=== PATIENT | female | born 1970 | race Caucasian/White ===

== ENCOUNTER 2017-05-01 09:17 | Inpatient (IN) ==
--- NOTE | 2017-05-01 09:20 | Emergency Department Note ---
Disposition Clinical Impression: Malignant hypertension Headache Qualifiers: Headache type: other headache syndrome Qualified Code(s): G44.89 - Other headache syndrome Disposition: Admitted As Inpatient Condition: Fair Referrals: Alexa Silverio MD [Primary Care Provider] - Forms: ED Satisfaction Letter Headache HPI - General Chief Complaint: ED Headache Stated Complaint: headache Time Seen by Provider: 05/01/17 09:24 Source: patient Mode of arrival: private vehicle Limitations: no limitations Nursing Notes Reviewed: Yes Vital Signs Reviewed: Yes - History of Present Illness HPI Narrative: Patient relates she is hence admitted headache intermittent since Friday. She states initially went away with Tylenol. On Friday she is to have an infusion for her rheumatoid arthritis and was noted to have some elevated blood pressure. She states there is difficulty with the IV and the infusion and had to be discontinued that day due to pain in her right arm. She did have return headache she states late yesterday morning and has gradually gotten worse until the present time. She called to her primary care physician' s office and was advised to come here for evaluation. She states the pain is occipital to frontal and she cannot describe the quality of the pain other than it "hurts so bad". She denies anything else that makes this pain better or worse. She has had some light sensitivity without other visual changes. She denies now and sensitivity. She has had some nausea without vomiting. She denies any extremity numbness, tingling or weakness other than a little bit of tingling in her feet yesterday. She denies chest pain, palpitations or abnormal cough. She states she has a smoker's cough. She does report that she is having some mild shortness of breath. She denies fevers, chills, diaphoresis or any lower extremity edema. She denies any alteration in mental status, speech or gait. She states she occasionally feels a little lightheaded when headache pain is bad. She states she does drink a good bit of caffeinated beverages but denies any other recent cold preparations, energy drinks or diet pills. She laid she has had a history of headaches but this one has been more persistent and is gradually getting worse. Pt Subjective Complaint: headache Onset (ago): day(s) Onset description: gradual Location: frontal, occipital Pain Severity: moderate, severe Quality: aching, constant Improves with: nothing Worsens with: light Context: occurred at rest Associated symptoms: Reports: cough ("Smoker's cough"), nausea, malaise, photophobia, SOB. Denies: chest pain, diaphoresis, fever, vomiting, neck stiffness, phonophobia, rash, seizure, eye pain/redness, syncope, vision changes , tingling, numbness, confusion, weakness Treatments prior to arrival: acetaminophen - Related Data Home Medications Medication Instructions Recorded Confirmed Adalimumab [Humira Crohn's] 40 mg SQ 05/01/17 Cetirizine HCl [Zyrtec] 10 mg PO DAILY 05/01/17 05/01/17 Leflunomide 20 mg PO DAILY 05/01/17 05/01/17 Allergies Allergy/AdvReac Type Severity Reaction Status Date / Time golimumab [From Simponi ARIA] Allergy Hives Verified 02/26/17 14:23 acetaminophen [From Percocet] AdvReac Itching Verified 12/17/15 10:54 Oxycodone [From Percocet] AdvReac Itching Verified 12/17/15 10:54 tramadol AdvReac Hallucinati Verified 05/01/17 09:26 ng All systems ED: reviewed and negative except as stated. Headache PMH - Past Medical History Medical history: Reports: hyperlipidemia, hypertension, RA, thyroid disease, other (Headaches) Female Surgical History: Reports: cholecystectomy, hysterectomy Psychiatric history: Reports: no psych history PROJECT ADMIN history: Reports: bilateral tubal ligation - Social History Smoking Status: Current every day smoker Alcohol use: Reports: none Drug use: Reports: none Physical Exam - General Limitations: no limitations General appearance: alert, in distress - Head Head exam: atraumatic, normocephalic, normal inspection - Eye Eye exam: Present: normal appearance, PERRL, EOMI. Absent: scleral icterus, conjunctival injection, nystagmus - ENT ENT exam: normal exam, normal oropharynx, mucous membranes moist - Neck Neck exam: Present: normal inspection, full ROM, trachea midline. Absent: tenderness, meningismus, lymphadenopathy - Chest Chest inspection: Present: normal inspection, symmetric chest wall rise - Respiratory Respiratory exam: Present: normal lung sounds bilaterally. Absent: respiratory distress, wheezes, prolonged expiratory phase - Cardiovascular Cardiovascular exam: Present: regular rate, normal rhythm, normal heart sounds - Extremities Exam Extremities exam: Present: normal inspection, full ROM, normal capillary refill. Absent: tenderness, pedal edema, calf tenderness - Expanded Lower Extremity Exam Neurovascular/Tendon exam: Present: normal capillary refill. Absent: motor deficit, sensory deficit, tendon deficit Gait: observed and normal - Back Exam Back exam: Present: normal inspection, full ROM. Absent: tenderness - Neurological Exam Neurological exam: Present: alert, oriented X3, CN II-XII intact, normal gait, reflexes normal. Absent: motor sensory deficit - Psychiatric Psychiatric exam: Present: normal mood, flat affect - Skin Skin exam: Present: warm, dry, intact, normal color. Absent: rash, diaphoresis , pallor Course Course Narrative: 1035: All labs and imaging results have been discussed with the patient and family. I recommended her observation for careful blood pressure monitoring and being started on oral antihypertensives. She states that she would refuse to be admitted at this facility but she is willing to go to [facility]. I contacted to the transfer line and they advised her parents are taped but they do have to telemetry beds. They recommended we contact the hospitalist to see if they would accept the patient. 1053: The patient has been declined in transfer to [facility] by Dr. Reid due to lack of beds. 1059: [facility] advises they do not have any telemetry beds available at this time. Given this information the patient states that they are agreeable to staying at this facility. 1105: Dr. Back is agreeable with this patient be admitted at this facility. He would like to review the patient's history and evaluated the patient prior to writing for antihypertensives. He relates he will place in the orders for antihypertensive medication treatment when she arrives to the floor. Vital Signs Temperature 97.8 F 05/01/17 09:19 Pulse Rate 109 05/01/17 09:19 Respiratory Rate 18 05/01/17 09:19 Blood Pressure 228/138 05/01/17 09:19 O2 Sat by Pulse Oximetry 99 05/01/17 09:19 Temperature 97.8 F 05/01/17 09:19 Pulse Rate 78 05/01/17 10:33 Respiratory Rate 18 05/01/17 10:33 Blood Pressure 154/86 05/01/17 10:33 O2 Sat by Pulse Oximetry 98 05/01/17 10:33 Oxygen Delivery Oxygen Delivery Room Air Headache - Differential Diagnosis Differential Diagnosis: Likely: migraine, tension headache, headache - Medical Records Medical records reviewed: Yes I reviewed the patient's medical records. - Lab Data Lab results reviewed: Yes I reviewed the patient's lab results. Result diagrams: 05/01/17 09:39 Lab Results 05/01/17 05/01/17 Range/Units 09:39 09:40 Sodium 138 (136-145) mEq/L Potassium 3.4 L (3.5-4.5) mEq/L Chloride 100 (98-109) mEq/L Carbon Dioxide 26 (19-29) mEq/L BUN 6 L (7-20) mg/dL Creatinine 0.73 (0.57-1.11) mg/dL Est GFR ( Amer) > 60 (> 60) Est GFR (Non-Af Amer) > 60 (> 60) BUN/Creatinine Ratio 8 (6-26) Glucose 159 H (70-99) mg/dL Calculated Osmolality 287 (280-300) Calcium 9.2 (8.6-10.8) mg/dL Troponin I 0.01 (0-0.03) ng/mL - Radiology Data Radiology results reviewed: Yes I reviewed the patient's radiology results. CT head is performed. This is reviewed on bone and soft tissue windows. There is no evidence for acute intracranial bleed, shift, mass or edema. Mastoids and sinuses appear normal. There is no fracture evident. This is on my interpretation. Impressions Head CT 05/01/17 09:25 IMPRESSION: No acute intracranial abnormality. D/ / Fercho Rodriguez MD / Fercho Rodriguez MD Interpreting Provider: Fercho Rodriguez MD - EKG Data EKG attestation: Yes I reviewed and interpreted this EKG. EKG shows normal: sinus rhythm, axis, intervals, QRS complexes, ST-T waves Rate: normal (84) Voltage: c/w LVH Interpretation: no acute changes, nonspecific ST-T wave changes Critical Care Time Critical Care Time: Yes Total Critical Care Time: 45 Attestation: As this patient did present with signs and symptoms of potential life- threatening illness requiring my urgent intervention, total critical care time in this patient's care has been 45 minutes, not withstanding separately reportable procedures.
[2017-05-01] MEDS ORDERED: cloNIDine HCl 0.1 MG TABLET PO ONE (09:25)
[2017-05-01] MEDS ORDERED: *HR* Labetalol 20 MG/4 ML SYRINGE IVP ONE ×2 (09:25→10:12)
[2017-05-01 10:02] LABS: BUN/Creatinine Ratio 8 (6-26); Blood Urea Nitrogen 6 mg/dL (7-20); Calcium 9.2 mg/dL (8.6-10.8); Carbon Dioxide 26 mEq/L (19-29); Chloride 100 mEq/L (98-109); Glucose 159 mg/dL (70-99); Osmolality,Calculated 287 (280-300); Potassium 3.4 mEq/L (3.5-4.5); Sodium 138 mEq/L (136-145); eGFR For African Americans > 60 (> 60); eGFR For Non-African Americans > 60 (> 60)
[2017-05-01] MEDS ORDERED: *HR* HYDROmorphone (PF) 1 MG/ML SYRINGE IVP ONE ×2 (10:36→12:35)
[2017-05-01] MEDS ORDERED: Ondansetron 4 MG/2 ML VIAL IVP ONE (11:11)
[2017-05-01] MEDS ORDERED: MOM Conc 10 ML UD.LIQ PO PRN (11:55)
[2017-05-01] MEDS ORDERED: 0.9 % Sodium Chloride 1,000 ML IVC SCH (11:55)
[2017-05-01] MEDS ORDERED: Ondansetron 4 MG/2 ML VIAL IVP PRN (11:55)
[2017-05-01] MEDS ORDERED: *HR* HYDROmorphone (PF) 1 MG/ML SYRINGE IVP PRN (11:55)
[2017-05-01] MEDS ORDERED: Naloxone 0.4 MG/ML INJ IVP PRN (11:55)
[2017-05-01] MEDS ORDERED: amLODIPine 5 MG TABLET PO SCH (12:30)
[2017-05-01] MEDS: *HR* HYDROmorphone (PF) 1 MG/ML SYRINGE IVP PRN ×2 (14:12→20:09)
--- NOTE | 2017-05-01 15:46 | Internal Med History&Physical ---
Date of Encounter: 05/01/17 Time of Encounter: 15:15 Assessment and Plan (1) Malignant hypertension Current visit: Yes Status: Acute She was treated in emergency room and blood pressure has improved. She will continue to receive oral antihypertensives with additional IV medication given as needed. (2) Headache Current visit: Yes Status: Acute She has been given analgesics to lessen the headache and improved blood pressure. Qualifiers: Headache type: other headache syndrome Qualified Code(s): G44.89 - Other headache syndrome (3) Hypokalemia Current visit: Yes Status: Acute She will be given supplemental potassium. Labs will be rechecked in a.m. Internal Medicine - H&P: HPI Chief complaint: Headache and vomiting Admitted From: Home Plans for Post Hospital Care: Home History of present illness: Ms. Servin is a 47 year old female who came to emergency room stating she had onset of severe headache 3 days earlier. She checked her blood pressure last evening and found it elevated at 208/133. 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 She was evaluated emergency room and pressure was still elevated at 228/138. She was admitted to [facility] floor for ongoing care needs. She denies past history of hypertension or treatment. She states she last checked her blood pressure approximately one month ago and systolic blood pressure was 170. She has not been prescribed antihypertensive medication. She has not seen her PCP in approximately one year. She denies NH heart failure angina DVT or pulmonary embolus. She has not had a stress test or heart catheter that she can recall. She had 4 episodes of vomiting in the last 24 hours. Past Med Surg Social Fam HX - Past Medical History Medical history: hyperlipidemia, hypertension, RA, thyroid disease, other Psychiatric history: no psych history - Past Surgical History Surgical History: cholecystectomy - Social History Smoking Status: Current every day smoker Smokeless Tobacco Status: No Alcohol use: none Drug use: none Internal Medicine - H&P: Meds Adalimumab [Humira Crohn's] 40 mg SQ 05/01/17 [History] Leflunomide 20 mg PO DAILY 05/01/17 [History] Allergies golimumab [From Simponi ARIA] Allergy (Verified 02/26/17 14:23) Hives acetaminophen [From Percocet] Adverse Reaction (Verified 12/17/15 10:54) Itching Oxycodone [From Percocet] Adverse Reaction (Verified 12/17/15 10:54) Itching tramadol Adverse Reaction (Verified 05/01/17 09:26) Hallucinating All Systems PM: A 10-system review of systems was performed and is negative for pertinent findings except as documented above in the HPI. Review of systems: Gen.: She states her weight is been stable the past few months Cardiovascular: As per history of present illness Respiratory: She has smoked since age 9 up to 1.5 packs per day. She had PFTs 10/24/2015 which showed FEV1/FVC of 0.56. There was slight improvement postbronchodilator. She does not wear home oxygen. GI: She has had cholecystectomy. She has history of Crohn's disease and has had intermittent diarrhea. She denies disorders of her liver or exocrine pancreas : She had hematuria documented on UA 12/22/2015. She denies other disorders of her kidneys or bladder Neurologic: She denies large distribution strokes or seizures Endocrine: She was diagnosed with DM 2 approximately 1 year ago. She has hypothyroidism and hyperlipidemia Hematology/oncology: She has history of anemia. She denies internal malignancies Psychiatric: She denies anxiety depression or other mental health issues Musk skeletal: She has rheumatoid arthritis. She denies other bone joint or muscle disorders. - Constitutional Vitals: Temp Pulse Resp BP Pulse Ox 97.6 F 74 20 155/96 94 05/01/17 15:13 05/01/17 15:13 05/01/17 15:13 05/01/17 15:13 05/01/17 15:13 Exam: Gen.: She is a well-developed well-nourished female who appears weak and vomited during the time of examination HEENT: Head is atraumatic and normocephalic. Eyes: EOMI. There is no scleral icterus. Mouth: Mucosa is moist. Neck: Supple and nontender. There is no thyromegaly or adenopathy noted. Heart: Regular without murmurs gallops or ectopics. Lungs: No wheezes or crackles are heard. Abdomen: Soft and nontender. No masses or guarding noted. Bowel sounds are diminished Extremities: There is no cyanosis edema or clubbing noted. Dorsalis pedis and posterior tibial pulses are 1-2 over 2 bilaterally. Neurologic: Mental status: She is talkative and a good historian. Cranial nerves: Smile is symmetric. Forehead wrinkles bilaterally. Tongue protrudes midline. EOMI. Motor: There is no pronator drift. Cerebellar: Finish nose is intact bilaterally. Skin: Warm and dry Internal Med - H&P Results - Labs CBC & Chem 7: 05/01/17 09:39
--- NOTE | 2017-05-01 15:50 | Electrocardiograph Report ---
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
[2017-05-01] MEDS ORDERED: Ondansetron 4 MG/2 ML VIAL IVP SCH (16:00)
[2017-05-01] MEDS: 0.45 % Sodium Chloride w/KCl 20 MEQ/1,000 ML MLS IVC SCH (16:15)
[2017-05-01] MEDS: Ondansetron 4 MG/2 ML VIAL IVP PRN (16:36)
[2017-05-01] MEDS ORDERED: *HR* Promethazine 25 MG/ML VIAL IVP PRN (18:11)
[2017-05-01] MEDS ORDERED: *HR* Propranolol 1 MG/ML VIAL IVP ONE (18:16)
[2017-05-01 21:55] LABS: Hemoglobin A1C 6.6 %
[2017-05-02] MEDS: 0.45 % Sodium Chloride w/KCl 20 MEQ/1,000 ML MLS IVC SCH (02:06)
[2017-05-02] MEDS: *HR* HYDROmorphone (PF) 1 MG/ML SYRINGE IVP PRN (05:43)
[2017-05-02] MEDS: Ondansetron 4 MG/2 ML VIAL IVP PRN (05:47)
[2017-05-02 06:20] LABS: Basophils # 0.1 K/mcL (0.0-0.2); Basophils % 0.7 %; Eosinophils # 0.2 K/mcL (0.0-0.6); Hematocrit 40.5 % (35.3-44.9); Immature Granulocytes % 0.5 % (0-4); Lymphocytes % 28.2 %; Mean Corpuscular HGB Conc 32.1 g/dL (31.6-35.5); Mean Corpuscular Hemoglobin 28.9 pg (28.0-33.3); Mean Platelet Volume 12.6 fL (9.4-12.4); Monocytes # 0.8 K/mcL (0.0-1.3); Monocytes % 7.6 %; Neutrophils # 6.4 K/mcL (1.6-8.9); Platelet Count 263 K/mcL (140-400); Red Cell Distribution Width 18.2 % (11.5-14.5)
[2017-05-02 06:38] LABS: BUN/Creatinine Ratio 8 (6-26); Blood Urea Nitrogen 6 mg/dL (7-20); Carbon Dioxide 28 mEq/L (19-29); Chloride 103 mEq/L (98-109); Glucose 142 mg/dL (70-99); Osmolality,Calculated 296 (280-300); Potassium 3.9 mEq/L (3.5-4.5); Sodium 143 mEq/L (136-145); eGFR For African Americans > 60 (> 60); eGFR For Non-African Americans > 60 (> 60)
[2017-05-02] MEDS ORDERED: Loratadine 10 MG TABLET PO SCH (09:00)
[2017-05-02] MEDS ORDERED: (Leflunomide [Leflunomide] 20 MG) PO SCH (09:00)
--- NOTE | 2017-05-02 09:37 | Discharge Summary ---
Date of Encounter: 05/02/17 Time of Encounter: 09:25 - Discharge Diagnosis (1) Malignant hypertension Priority: Primary Status: Acute (2) Headache Priority: Secondary Status: Acute Qualifiers: Headache type: other headache syndrome Qualified Code(s): G44.89 - Other headache syndrome (3) Hypokalemia Priority: Secondary Status: Resolved (4) Hypomagnesemia Priority: Secondary Status: Acute - Discharge Medications Prescriptions: amLODIPine [Norvasc] 5 mg PO DAILY #30 tab HYDROcodone/Acet 5/325 mg [[place] 5-325 mg] 1 tab PO Q4H PRN #10 tab PRN Reason: Pain Magnesium Oxide [Mag-Ox] 400 mg PO DAILY #7 tablet Ondansetron HCl [Zofran] 4 mg PO Q4H PRN #12 tablet PRN Reason: Nausea Home Medications: Adalimumab [Humira Pen Crohn-Uc-Hs Starter] 40 mg SQ 05/01/17 [History] Leflunomide 20 mg PO DAILY 05/01/17 [History] HYDROcodone/Acet 5/325 mg [[place] 5-325 mg] 1 tab PO Q4H PRN #10 tab 05/02/17 [Rx ] Magnesium Oxide [Mag-Ox] 400 mg PO DAILY #7 tablet 05/02/17 [Rx] Ondansetron HCl [Zofran] 4 mg PO Q4H PRN #12 tablet 05/02/17 [Rx] amLODIPine [Norvasc] 5 mg PO DAILY #30 tab 05/02/17 [Rx] Allergies/Adverse Reactions: Allergies golimumab [From Simponi ARIA] Allergy (Verified 02/26/17 14:23) Hives acetaminophen [From Percocet] Adverse Reaction (Verified 12/17/15 10:54) Itching Oxycodone [From Percocet] Adverse Reaction (Verified 12/17/15 10:54) Itching tramadol Adverse Reaction (Verified 05/01/17 09:26) Hallucinating Procedures/tests Complete & Pending: Procedures Performed prior 72 hours Category Date Time Status EKG [ECG 12 lead ECG] [ECG] Stat Y 05/01/17 18:47 Ordered Date of admission: 05/01/17 12:29 Primary care physician: Alexa Silverio - Patient Status Disposition: Home, Self-Care Condition: Fair Functional capacity at discharge: independent ambulation Overall status at discharge: patient is progressing back to baseline - Discharge Instructions Follow Up With: Alexa Silverio MD [Primary Care Provider] - 1 week - Diet and Activity Activity: resume usual activities as tolerated Diet: advance to your usual diet Hospital course: Ms. Servin is a 47 year old female who came to emergency room stating she had onset of severe headache 3 days earlier. She checked her blood pressure last evening and found it elevated at 208/133. 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 She was evaluated emergency room and pressure was still elevated at 228/138. She was admitted to [facility] for ongoing care needs. Initial orders were written by the emergency room physician. I saw her on May 01 and performed the history and physical. She was treated in emergency room with IV medication. Her pressure fluctuated over the succeeding hours requiring intermittent additional IV medication. She also received analgesics for complaints of a headache. Her last episode of vomiting was the evening of May 01. She tolerated breakfast May 02 and felt slightly improved. Her blood pressure had decreased to 120/71 by the morning of May 02. She felt she was stable for discharge home when I saw her May 02. She will be placed on Norvasc 5 mg daily. I will give her prn medication for nausea and headache. Her magnesium level was 1.3 on the day of discharge. She will be given supplemental magnesium oxide for 7 days. She will follow with her PCP within one week. I encouraged her to check her blood pressure daily for the next 3-4 days. - Time Spent with Patient Total time spent providing and/or coordinating discharge services: - Constitutional Vitals: Temp Pulse Resp BP Pulse Ox 97.6 F 97 16 120/71 93 05/02/17 06:41 05/02/17 06:41 05/02/17 06:41 05/02/17 06:41 05/02/17 06:41
[2017-05-02] MEDS ORDERED: amLODIPine 5 MG TABLET PO SCH (09:45)
--- NOTE | 2017-05-02 10:20 | Electrocardiograph Report ---
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
[2017-05-02 10:42] VITALS: BP 164/98
== END 2017-05-02 10:43 | disposition home or self-care (01) | DRG 199 ==
LOC: INPPIK 09:17 → EMEROOPIK 09:17 → INPPIK 12:02
PROVIDERS: ADMIT Internal Medicine; ATTEND Internal Medicine